=== PATIENT | female | born 1975 | race Caucasian/White ===

== ENCOUNTER 2018-10-02 12:20 | Emergency (ER) | payer BC, OTHER ==
[~2018-10-02] VITALS: Ht 170.2 cm; Wt 117.9 kg
[2018-10-02] MEDS ORDERED: LIDOCAINE 1% INJ 20 ML 20 ML VIAL ONE (12:47)
[2018-10-02] MEDS ORDERED: LIDOCAINE 1% INJ 20 ML 20 ML VIAL INJ ONE (13:00)
--- NOTE | 2018-10-02 13:05 | ED Integumentary General ---
General Chief Complaint: Bite-Animal/Human/Insect Stated Complaint: DOG BITE Nursing Triage Note: PT WAS BITE BY DOG SUNDAY NIGHT AROUND 7PM. PT WENT TO WALK IN CLINIC ON SUNDAY AND RECEIVED ANTIBIOTICS. PT STATES SHE TOOK A SHOWER THIS AM AND HAND BEGAN TO BE PAINFUL AND STARTED TO DRAINE. Source: patient Exam Limitations: no limitations History of Present Illness Date Seen by Provider: Oct 02, 2018 Time Seen by Provider: 13:01 Initial Comments To ER with reports of a dog bite that occurred 09/30/18 in the evening. This was her own dog and the dog is up-to-date on vaccinations. She happened to be in [place] so she went to an urgent care who prescribed Augmentin. She states that it initially swelled up and was more red but the redness and swelling has gone down. She comes in today because she thinks there may be an abscess beneath this puncture site and her friends have her concerned in regards to sepsis. She has no fevers or chills. Timing/Duration: constant Severity: moderate Location: hands Allergies and Home Medications Allergies Coded Allergies: No Known Drug Allergies (Unverified , 10/02/18) Patient Home Medication List Home Medication List Reviewed: Yes Review of Systems Review of Systems Constitutional: see HPI EENTM: see HPI Respiratory: no symptoms reported Cardiovascular: no symptoms reported Genitourinary: no symptoms reported Musculoskeletal: no symptoms reported Skin: see HPI Psychiatric/Neurological: No Symptoms Reported Endocrine: No Symptoms Reported Past Bqtatwp-Napjtj-Wznjus Hx Patient Social History Alcohol Use: Denies Use Recreational Drug Use: No Smoking Status: Current Everyday Smoker Type Used: Cigarettes Recent Foreign Travel: No Contact w/Someone Who Travel: No Recent Infectious Disease Expo: No Recent Hopitalizations: No Physical Abuse: No Sexual Abuse: No Seasonal Allergies Seasonal Allergies: No Past Medical History Surgeries: No Respiratory: No Cardiac: No Neurological: No Genitourinary: No Gastrointestinal: No Musculoskeletal: No Endocrine: No HEENT: No Cancer: No Psychosocial: No Integumentary: No Blood Disorders: No Physical Exam Vital Signs Vital Signs - First Documented 10/02/18 12:45 Temp 97.7 Pulse 89 Resp 16 B/P (MAP) 139/89 (106) Pulse Ox 99 Capillary Refill : Less Than 3 Seconds General Appearance: WD/WN, no apparent distress HEENT: PERRL/EOMI, normal ENT inspection Respiratory: no respiratory distress, no accessory muscle use Neurologic/Psychiatric: alert, normal mood/affect, oriented x 3 Skin: normal color, warm/dry Skin Problem Location: upper extremities (dorsal aspect third MCP joint. There is some mild erythema and edema that extends proximally up to the wrist but there is no lymphangitis proximal to this. She is able to actively and passively flex and extend the middle finger without significant increase in pain. At this time I do not have significant concerns of extensor tenosynovitis. I'm able to squeeze a minute amount of serosanguineous material from the wound. We did anesthetize it and do incision and drainage) Procedures/Interventions I&D : Blade Size: 11 Progress Cleaned with alcohol swab, anesthetized superficially with 0.5 mL of 1% lidocaine without epinephrine. Superficial incision of about 3 mm was made with an 11 blade scalpel being careful not to go to detox was to injure the extensor tendon or introduce bacteria any deeper than it already is. A small amount of serosanguineous material was able to be expressed. Culture collected and sent to lab. Covered with gauze. Progress/Results/Core Measures Results/Orders My Orders Orders - RON SOLIS APRN Lidocaine 1% Inj 20 Ml (Xylocaine 1% Inj (10/02/18 12:47) Lidocaine 1% Inj 20 Ml (Xylocaine 1% Inj (10/02/18 13:00) Wound Culture (10/02/18 13:00) Vital Signs/I&O 10/02/18 12:45 Temp 97.7 Pulse 89 Resp 16 B/P (MAP) 139/89 (106) Pulse Ox 99 Blood Pressure Mean: 106 Departure Impression Primary Impression: Dog bite Qualified Codes: W54.0XXA - Bitten by dog, initial encounter Disposition: 01 HOME, SELF-CARE Condition: Stable Departure-Patient Inst. Decision time for Depature: 13:04 Patient Instructions: Animal Bites (DC) Add. Discharge Instructions: 1. Warm compresses. Will help promote blood flow, cool compresses may be helpful for pain standpoint. Continue the antibiotics as you are. Elevate the hand will help. Return to ER for significantly increasing redness or swelling that extends up the arm further than it already is. He should have the culture results in about 36 hours, if this indicates a need for different antibiotic we will call you. All discharge instructions reviewed with patient and/or family. Voiced understanding. Work/School Note: Work Release Form Date Seen in the Emergency Department: Oct 02, 2018 Return to Work: Oct 04, 2018 RON SOLIS APRN Oct 02, 2018 13:05
[2018-10-02 13:15] VITALS: BP 139/89
--- OUTSIDE RECORDS SUMMARY | 2018-10-02 15:52 | XMS REPORT ---
Author Author MAYRA YODER Organization [facility] WALK IN [facility] Address [address] [place] [address] Care Team Providers Care Manager Digital Ad Operations Name Role Phone MAYRA YODER Unavailable PROBLEMS Type Condition ICD9-CM Code [id number] Code Onset Dates Condition Status SNOMED Code Problem Hyperthyroidism, subclinical E05.90 Active 336322650 ALLERGIES No Information ENCOUNTERS Encounter Location Date Diagnosis [place] [address] [address] Mar, Hyperthyroidism, subclinical E05.90 [place] [address] [address] Mar, Hyperthyroidism, subclinical E05.90 [place] [address] [address] Feb, Hyperthyroidism, subclinical E05.90 [place] [address] [address] Feb, Well woman exam (no gynecological exam) Z00.00 and BMI 40.0- 44.9, adult Z68.41 [facility] WALK IN [address] [address] Sep, Seasonal allergic rhinitis, unspecified trigger J30.2 and BMI 40.0-44.9, adult Z68.41 [facility] WALK IN [address] [address] Jun, Acute non-recurrent maxillary sinusitis J01.00 [facility] WALK IN [place] [address] [place] [id number] [place] [address] May, Acute non-recurrent frontal sinusitis J01.10 [place] [address] [address] 14 Dec, 2014 [facility] [address] [address] Dec, [facility] [address] [address] Nov, [facility] [address] [address] Nov, [facility] [address] [address] Oct, [facility] [address] [address] Oct, [facility] [address] [address] Oct, [facility] [address] [address] Oct, [facility] [address] [address] Oct, [facility] [address] [address] January, [facility] [address] [address] Nov, [facility] [address] [address] Oct, [facility] [address] [address] Oct, [facility] [address] [address] Oct, IMMUNIZATIONS No Known Immunizations SOCIAL HISTORY Never Assessed REASON FOR VISIT deferred lab PLAN OF CARE VITAL SIGNS MEDICATIONS Unknown Medications RESULTS No Results PROCEDURES No Known procedures INSTRUCTIONS MEDICATIONS ADMINISTERED No Known Medications
--- OUTSIDE RECORDS SUMMARY | 2018-10-02 15:52 | XMS REPORT ---
Author Author AMBER WHALEY Organization [employer] Address Unknown Phone Unavailable Care Team Providers Care Appointment Setter Name Role Phone AMBER WHALEY CP Unavailable Allergies, Adverse Reactions, Alerts Substance Reaction Event Type N.K.D.A. Info Not Available Non Drug Allergy Problems Problem Type Condition Code Onset Dates Condition Status Problem Routine gynecological examination V72.31 Active Problem Family history of diabetes mellitus V18.0 Active Problem Unspecified breast screening V76.10 Active Assessment Acute non-recurrent maxillary sinusitis J01.00 Active Problem Health examination of defined subpopulation V70.5 Active Problem Counseling on substance use and abuse V65.42 Active Problem Acute non-recurrent frontal sinusitis J01.10 Active Problem Other screening breast examination V76.19 Active Problem Other disorder of menstruation and other abnormal bleeding from female genital tract 626.8 Active Problem Special screening examination, human papillomavirus [HPV] V73.81 Active Problem Screening for malignant neoplasm of the cervix V76.2 Active Medications Medication Code System Code Instructions Start Date End Date Status Dosage Bactrim DS [facility] [address]-88 800-160 MG Orally Twice a day Jun 16, 2016 Jun 26, 2016 1 tablet Fluticasone Propionate [facility] [address]-90 50 MCG/ACT Nasally Once a day Jun 16, 2016 1-2 spray in each nostril Procedures Procedure Coding System Code Date Office Visit, Est Pt., Level 3 CPT-4 92220 Jun 16, 2016 Vital Signs Date/Time: Jun 16, 2016 Cardiac Monitoring Heart Rate 82 bpm Weight 255.2 lbs Height 67 in BMI 39.97 Index Blood Pressure Diastolic 90 mmHg Blood Pressure Systolic 128 mmHg Results No Known Results Summary Purpose [employer] Submission
--- OUTSIDE RECORDS SUMMARY | 2018-10-02 15:52 | XMS REPORT ---
Author Author MAYRA YODER Organization [facility] IN [facility] Address [address] [place] [address] Care Team Providers Care Security Nurse Name Role Phone MAYRA YODER Unavailable PROBLEMS Type Condition ICD9-CM Code YPV25-YS Code Onset Dates Condition Status SNOMED Code Problem Hyperthyroidism, subclinical E05.90 Active 681251446 ALLERGIES No Information ENCOUNTERS Encounter Location Date Diagnosis [place] [address] [address] Mar, Hyperthyroidism, subclinical E05.90 [place] [address] [address] Mar, Hyperthyroidism, subclinical E05.90 [place] [address] [address] Feb, Hyperthyroidism, subclinical E05.90 [place] [address] [address] Feb, Well woman exam (no gynecological exam) Z00.00 and BMI 40.0- 44.9, adult Z68.41 [facility] IN [address] [address] Sep, Seasonal allergic rhinitis, unspecified trigger J30.2 and BMI 40.0-44.9, adult Z68.41 [facility] [address] [address] Jun, Acute non-recurrent maxillary sinusitis J01.00 [facility] IN [place] [address] [address] May, Acute non-recurrent frontal sinusitis J01.10 [place] [address] [address] 14 Dec, 2014 [facility] [address] [address] 13 Dec, 2014 [facility] [address] [address] Nov, [facility] [address] [address] Nov, [facility] [address] [address] Oct, [facility] [address] [place] [address] Oct, [facility] [address] [address] Oct, [facility] [address] [address] Oct, [facility] [address] [address] Oct, [facility] [address] [address] January, [facility] [address] [address] Nov, [facility] [address] [address] Oct, [facility] [address] [address] Oct, [facility] [address] [address] Oct, IMMUNIZATIONS No Known Immunizations SOCIAL HISTORY Never Assessed REASON FOR VISIT Lab (walk-in) PLAN OF CARE VITAL SIGNS MEDICATIONS Unknown Medications RESULTS No Results PROCEDURES Procedure Date Ordered Result Body Site MICROSOMAL ANTIBODY March 29, 2018 THYROGLOBULIN ANTIBODY March 29, 2018 INSTRUCTIONS MEDICATIONS ADMINISTERED No Known Medications
--- OUTSIDE RECORDS SUMMARY | 2018-10-02 15:52 | XMS REPORT ---
Author Author MAYRA YODER Organization [facility] WALK IN [facility] Address [address] [place] [address] Care Team Providers Care Tape Deck Installer Name Role Phone MAYRA YODER Unavailable PROBLEMS Type Condition ICD9-CM Code TIQ51-KT Code Onset Dates Condition Status SNOMED Code Problem Hyperthyroidism, subclinical E05.90 Active 771885130 ALLERGIES No Known Allergies ENCOUNTERS Encounter Location Date Diagnosis [address] [address] Mar, Hyperthyroidism, subclinical E05.[address] [address] Mar, Hyperthyroidism, subclinical E05.[address] [address] Feb, Hyperthyroidism, subclinical E05.[address] [address] Feb, Well woman exam (no gynecological exam) Z00.00 and BMI 40.0- 44.9, adult Z68.41 [facility] WALK IN [address] [address] Sep, Seasonal allergic rhinitis, unspecified trigger J30.2 and BMI 40.0-44.9, adult Z68.41 [facility] IN [address] [address] Jun, Acute non-recurrent maxillary sinusitis J01.00 [facility] W[facility] IN [address] [address] May, Acute non-recurrent frontal sinusitis J01.10 [place] [address] [address] [facility] [id number] [address] 14 Dec, 2014 [facility] [address] [facility] [id number] [address] Dec, [facility] [address] [facility] [id number] [address] Nov, [facility] [address] [facility] [id number] [place] [address] Nov, [facility] [address] [facility] [id number] [place] [address] Oct, [facility] [address] [facility] [id number] [place] [address] Oct, [facility] [address] [facility] [id number] [place] Oct, [facility] [address] [address] Oct, [facility] [address] [address] Oct, [facility] [address] [address] January, [facility] [address] [address] Nov, [facility] [address] [address] Oct, [facility] [address] [place] [id number] [address] Oct, [facility] [address] [address] Oct, IMMUNIZATIONS No Known Immunizations SOCIAL HISTORY Never Assessed REASON FOR VISIT Well Woman Exam - Normal Pap/negative HPV 10/2014 so NOT due for Pap/HPV until 2019[facility] PLAN OF CARE Activity Details Follow Up 1 Year, prn Reason:annual physical VITAL SIGNS Height 67 in 2018-02-08 Weight 260.3 lbs 2018-02-08 Temperature 97.6 degrees Fahrenheit 2018-02-08 Heart Rate 80 bpm 2018-02-08 Respiratory Rate 18 2018-02-08 BMI 40.76 kg/m2 2018-02-08 Blood pressure systolic 124 mmHg 2018-02-08 Blood pressure diastolic 74 mmHg 2018-02-08 MEDICATIONS Unknown Medications RESULTS No Results PROCEDURES Procedure Date Ordered Result Body Site Hemoglobin Test Send Out 0 dollar February 08, 2018 COMPREHEN METABOLIC PANEL February 08, 2018 VENIPUNCT, ROUTINE* February 08, 2018 LIPID PANEL February 08, 2018 ASSAY THYROID STIM HORMONE February 08, 2018 COMPLETE CBC W/AUTO DIFF WBC February 08, 2018 INSTRUCTIONS MEDICATIONS ADMINISTERED No Known Medications
--- OUTSIDE RECORDS SUMMARY | 2018-10-02 15:52 | XMS REPORT ---
Author Author MAYRA YODER Organization [facility] IN [facility] Address [address] [place] [address] Care Team Providers Care Correctional Therapy Teacher Name Role Phone MAYRA YODER Unavailable PROBLEMS Type Condition ICD9-CM Code USR80-JO Code Onset Dates Condition Status SNOMED Code Problem Hyperthyroidism, subclinical E05.90 Active 731030330 ALLERGIES No Information ENCOUNTERS Encounter Location Date Diagnosis [place] [address] [address] Mar, Hyperthyroidism, subclinical E05.90 [place] [address] [address] Mar, Hyperthyroidism, subclinical E05.90 [place] [address] [address] Feb, Hyperthyroidism, subclinical E05.90 [place] [address] [address] Feb, Well woman exam (no gynecological exam) Z00.00 and BMI 40.0- 44.9, adult Z68.41 [facility] WALK IN [address] [address] Sep, Seasonal allergic rhinitis, unspecified trigger J30.2 and BMI 40.0-44.9, adult Z68.41 [facility] WALK IN [address] [address] Jun, Acute non-recurrent maxillary sinusitis J01.00 [facility] WALK IN [place] [address] [address] May, Acute non-recurrent frontal sinusitis J01.10 [place] [address], [place] [address] 14 Dec, 2014 [facility] [place] [address] [address] Dec, [facility] [place] [address] [address] Nov, [facility] [place] [address] [address] Nov, [facility] [place] [address], [place] [address] Oct, [facility] [place] [address] [address] Oct, [facility] [place] [address] [address] Oct, [facility] [place] [address], [place] [address] Oct, [facility] [place] [address], [place] [address] Oct, [facility] [place] [address], [place] [address] January, [facility] [place] [address], [place] [address] Nov, [facility] [place] [address], [place] [address] Oct, [facility] [place] [address] [address] Oct, [facility] [place] [address], [place] [address] Oct, IMMUNIZATIONS No Known Immunizations SOCIAL HISTORY Never Assessed REASON FOR VISIT per lab results PLAN OF CARE VITAL SIGNS MEDICATIONS Unknown Medications RESULTS No Results PROCEDURES No Known procedures INSTRUCTIONS MEDICATIONS ADMINISTERED No Known Medications
--- OUTSIDE RECORDS SUMMARY | 2018-10-02 15:52 | XMS REPORT ---
Author Author KIET SARAVIA Organization [facility] Address [address] [place] [address] Care Team Providers Care Nanny/Household Manager Name Role Phone KIET SARAVIA Unavailable PROBLEMS Type Condition ICD9-CM Code TZW27-ZN Code Onset Dates Condition Status SNOMED Code Problem Unspecified breast screening V76.10 Active 019278794 Problem Other disorder of menstruation and other abnormal bleeding from female genital tract 626.8 Active 386923230 Problem Family history of diabetes mellitus V18.0 Active 330710621 Problem Routine gynecological examination V72.31 Active 311297037057593 Problem Acute non-recurrent frontal sinusitis J01.10 Active 99994920 Problem Health examination of defined subpopulation V70.5 Active 809865610 Problem Screening for malignant neoplasm of the cervix V76.2 Active 722760971 Problem Other screening breast examination V76.19 Active 83749757 Problem Counseling on substance use and abuse V65.42 Active 303765291 Problem Special screening examination, human papillomavirus [HPV] V73.81 Active 213211568 ALLERGIES Substance Reaction Event Type Date Status N.K.D.A. Unknown Non Drug Allergy May, Unknown SOCIAL HISTORY No smoking Hx information available PLAN OF CARE Activity Details Follow Up 2 Weeks Reason: VITAL SIGNS Height 67 in 2016-05-29 Weight 256.8 lbs 2016-05-29 Temperature 97.9 degrees Fahrenheit 2016-05-29 Heart Rate 78 bpm 2016-05-29 Respiratory Rate 18 2016-05-29 BMI 40.22 kg/m2 2016-05-29 Blood pressure systolic 138 mmHg 2016-05-29 Blood pressure diastolic 86 mmHg 2016-05-29 MEDICATIONS Medication Instructions Dosage Frequency Start Date End Date Duration Status Amoxicillin 875 MG Orally twice a day 1 capsule 12h May, May, 10 day(s) Active RESULTS No Results PROCEDURES Procedure Date Ordered Related Diagnosis Body Site Office Visit, Est Pt., Level 3 May 29, 2016 IMMUNIZATIONS No Known Immunizations
--- OUTSIDE RECORDS SUMMARY | 2018-10-02 15:52 | XMS REPORT | Continuity of Care Document ---
Author Author [facility] Address Unknown Phone Unavailable Allergies There is no data. Medications There is no data. Problems Date Dx Coded Attending Type Code Diagnosis Diagnosed By 02/01/2010 300.00 AN ANXIETY UNSPEC 02/01/2010 300.00 AN ANXIETY UNSPEC 02/01/2010 MISSY LAWSON APRN 300.00 AN ANXIETY UNSPEC 10/31/2011 626.8 DYSFUNCTIONAL UTERINE BLEEDING 10/31/2011 V18.0 FAMILY HISTORY OF DIABETES MELLITUS 10/31/2011 V76.19 Breast Cancer Screening 10/31/2011 V76.2 Cervical Pap Smear 10/31/2011 626.8 DYSFUNCTIONAL UTERINE BLEEDING 10/31/2011 V18.0 FAMILY HISTORY OF DIABETES MELLITUS 10/31/2011 V76.19 Breast Cancer Screening 10/31/2011 V76.2 Cervical Pap Smear 10/31/2011 MISSY LAWSON APRN 626.8 DYSFUNCTIONAL UTERINE BLEEDING 10/31/2011 MISSY LAWSON APRN V18.0 FAMILY HISTORY OF DIABETES MELLITUS 10/31/2011 MISSY LAWSON APRN V76.19 Breast Cancer Screening 10/31/2011 MISSY LAWSON APRN V76.2 Cervical Pap Smear 11/21/2012 V70.5 PREEMPLOYMENT/ PRESCHOOL EXAM 11/21/2012 V70.5 PREEMPLOYMENT/ PRESCHOOL EXAM 11/21/2012 MISSY LAWSON APRN V70.5 PREEMPLOYMENT/PRESCHOOL EXAM 02/06/2013 V72.31 BATCH TANK CONTROLLER EXAM, ROUTINE 02/06/2013 V76.10 BREAST CANCER SCREENING 02/06/2013 MISSY LAWSON APRN V72.31 BATCH TANK CONTROLLER EXAM, ROUTINE 02/06/2013 MISSY LAWSON APRN V76.10 BREAST CANCER SCREENING 10/26/2014 MISSY LAWSON APRN V65.42 COUNSELING - SMOKING CESSATION 10/26/2014 MISSY LAWSON APRN V73.81 HPV SCREENING Procedures Code Description [place] [address] UA LONG DIP 11/21/2012 14401 A1C (IN-HOUSE) 11/21/2012 Results Test Result Range T3, FREE - 02/08/18 09:37 T3, FREE 3.7 pg/mL 2.3-4.2 THYROID ANTIBODIES - 03/29/18 09:42 THYROID PEROXIDASE ANTIBODIES <1 IU/mL <9 THYROGLOBULIN ANTIBODIES <1 IU/mL < or=1 Encounters ACCT No. Visit Date/Time Discharge Status Pt. Type Provider Facility Loc./Unit Complaint [id number] 10/26/2014 13:15:00 10/26/2014 23:59:59 CLS Outpatient MISSY LAWSON APRN [id number] 11/21/2012 10:01:00 11/21/2012 23:59:59 CLS Outpatient [id number] 02/06/2013 09:59:00 Document Registration [id number] 03/29/2018 10:00:00 03/29/2018 23:59:59 [id number] 03/29/2018 10:00:00 Document Registration [id number] 02/08/2018 08:20:00 Document Registration
== END 2018-10-02 13:15 | disposition home or self-care (01) ==
LOC: EDUNIT# 12:20 → ER 12:21
DX: Z04.3 Encounter for examination and observation following other accident (principal); F17.210 Nicotine dependence, cigarettes, uncomplicated; W54.0XXA Bitten by dog, initial encounter
CPT/HCPCS: 87070; 87205; 99284

== ENCOUNTER → 2020-12-06 | Outpatient (CLI) | payer BC, OTHER ==
--- NOTE | 2020-12-07 09:41 | Diagnostic Imaging Report ---
EXAMINATION: Digital mammogram INDICATION: Bilateral screening This is the patient's baseline study. At this time there are no current complaints. The fibroglandular tissue in both breasts is heterogeneously dense. This does limit the sensitivity of this exam. There is no primary or secondary sign of malignancy noted. IMPRESSION: 1. There is no evidence of malignancy. 2. The patient should have her annual bilateral screening mammogram on schedule in November 2021. ACR category 1 ACR BI-RADS Category 1: Negative. Result letter will be mailed to the patient. Note: At least 10% of breast cancer is not imaged by mammography. Dictated by: Dictated on workstation # [id number]
== END ==
LOC: RAD 08:43
PROVIDERS: ATTEND Nurse Practitioner Family
DX: Z12.31 Encounter for screening mammogram for malignant neoplasm of breast (principal)
CPT/HCPCS: 77063; 77067

== ENCOUNTER → 2021-04-06 | Outpatient (CLI) | payer OTHER ==
--- NOTE | 2021-04-07 12:58 | Diagnostic Imaging Report ---
Indication: Hyperthyroidism. Patient was administered 202 uCi of I-123 capsule. Four-hour and 24 hour thyroid uptake was performed. In addition, thyroid scan was performed. 4 hour uptake is 14%. 24-hour thyroid uptake is 32%. 24-hour thyroid uptake is mildly elevated with normal values 10-30%. Thyroid scan does show some increased uptake involving probable nodule in the lower pole right lobe. The upper pole of the right lobe is unremarkable. Very little activity is seen in the left lobe. Correlation with thyroid ultrasound would be useful. IMPRESSION: 1. Mildly elevated 24-hour thyroid uptake of 32%. 2. Questionable hot thyroid nodule in the right lobe. Thyroid ultrasound would be recommended for further evaluation, if not already performed. Dictated by: Dictated on workstation # [id number]
== END ==
LOC: CARD 11:00
PROVIDERS: ATTEND Nurse Practitioner Family
DX: E05.90 Thyrotoxicosis, unspecified without thyrotoxic crisis or storm (principal)
CPT/HCPCS: 78014; A9516

== ENCOUNTER → 2021-05-20 | Outpatient (CLI) | payer OTHER ==
[~2021-05-20] VITALS: Ht 170.2 cm; Wt 81.8 kg
[~2021-05-20] MED LIST: LIDOCAINE 1% INJ 20 ML 20 ML VIAL INJ ONE
--- NOTE | 2021-05-20 16:15 | Diagnostic Imaging Report ---
INDICATION: Right-sided thyroid nodule. Patient presents for ultrasound-guided fine needle aspiration biopsy. PROCEDURE: Patient was brought to the procedure room and placed on the table in the supine position. Ultrasound imaging of the right neck was performed to evaluate appropriate entry site. The right neck was prepped and draped in the usual sterile fashion. A small amount of 1% lidocaine was utilized for local anesthesia. A a total of four passes were made into the solid nodule in the upper pole of the right lobe of the thyroid utilizing 25-gauge needles and fine-needle aspiration technique. A single pass was made with a Rotex needle and Rotex biopsy was performed. Needle was removed and hemostasis was obtained. Patient tolerated the procedure well. IMPRESSION: Successful ultrasound-guided fine needle aspiration and Rotex biopsy of the upper pole of the right lobe thyroid nodule. Dictated by: Dictated on workstation # [id number]
--- NOTE | 2021-05-20 16:17 | Diagnostic Imaging Report ---
INDICATION: Right lobe thyroid nodule. PROCEDURE: Patient was brought to the procedure room and placed on table in the supine position. Ultrasound imaging of the right neck was performed to evaluate appropriate entry site. Right neck was then prepped and draped in the usual sterile fashion. A small amount of 1% lidocaine was utilized for local anesthesia. A total of four passes were made into the dominant mass in the mid to lower aspect of the right lobe of the thyroid utilizing 25-gauge needles and fine-needle aspiration technique. A single pass was made with a Rotex needle and Rotex biopsy was performed. [place] were removed and hemostasis was obtained. Patient tolerated the procedure well and left the department in stable condition. IMPRESSION: Successful ultrasound-guided fine needle aspiration and Rotex biopsy of the dominant right lobe thyroid nodule. Pathology results are currently pending. Dictated by: Dictated on workstation # [id number]
== END ==
LOC: RAD 13:50
PROVIDERS: ATTEND Nurse Practitioner Family
DX: E04.1 Nontoxic single thyroid nodule (principal)
CPT/HCPCS: 10005; 10006